=== PATIENT | female | born 1935 | race Caucasian/White ===

== ENCOUNTER 2018-02-17 16:45 | Emergency (ER) | payer MEDICARE, OTHER ==
[~2018-02-17] VITALS: Ht 170.2 cm; Wt 67.6 kg
[~2018-02-17 16:45] MED LIST: ADULT LOW DOSE81 MG PO; ALLEGRA ALLERG180 MG PO; ALTACE5 M1 PO; ALTACE5 MG PO; AMOXICILLIN500 M1 PO; AUGMENTIN 875-1 EACH PO; BENZONATATE100 MG PO; CEPHALEXIN 500500 M2 PO; DOXYCYCLINE 10100 M1 PO; HYDROXYZINE HCL25 M1 PO; KEFLEX500 MG PO; LEVAQUIN 500 M500 MG PO; MOTION RELIEF25 MG PO; MUCINEX ALLERG180 MG PO; PREDNISONE50 MG PO; SINGULAIR 10 MG10 M1 PO; TOPROL XL25 MG PO; TRAMADOL 50 MG50 MG PO; ZANTAC 150MG T150 MG PO; ZETIA10 MG PO; ZOCOR 10 MG TAB10 MG PO; ZPAK; ZYRTEC 10 MG TA10 M1 PO
[2018-02-17] MEDS ORDERED: KEFLEX500 M1 PO (17:26)
[2018-02-17] MEDS ORDERED: BACTRIM DS TAB1 EACH PO (17:26)
[2018-02-17 17:37] VITALS: BP 199/90
== END 2018-02-17 17:40 | disposition home or self-care (01) ==
LOC: M.ERS 16:45
DX: L01.00 Impetigo, unspecified (principal); E78.00 Pure hypercholesterolemia, unspecified; G30.9 Alzheimer's disease, unspecified; F02.80 Dementia in other diseases classified elsewhere, unspecified severity, without behavioral disturbance, psychotic disturbance, mood disturbance, and anxiety